=== PATIENT | male | born 1970 | race Hispanic/Latino ===

== ENCOUNTER 2017-08-23 21:01 | Emergency (ER) | payer OTHER ==
[~2017-08-23] VITALS: Ht 170.2 cm; Wt 99.8 kg
[2017-08-23] MEDS ORDERED: SODIUM CHLORIDE 0.9% 1000ML 1,000 ML ONE (21:15)
[2017-08-23] MEDS ORDERED: ASPIRIN 325 MG TAB PO ONE (21:15)
[2017-08-23] MEDS ORDERED: NITROGLYCERIN 0.4 MG SUBL SL ONE (21:15)
[2017-08-23] MEDS ORDERED: ONDANSETRON HCL INJ 2 MG/ML VIAL IV PRN (22:15)
[2017-08-23] MEDS ORDERED: MORPHINE SULFATE 2 MG/ML SYR IV PRN (22:15)
[2017-08-23] MEDS ORDERED: NITROGLYCERIN 0.4 MG SUBL SL PRN (22:15)
[2017-08-23] MEDS ORDERED: SODIUM CHLORIDE FLUSH 10 ML SYR INJ PRN (22:15)
[2017-08-23] MEDS ORDERED: ASPIRIN 81 MG CHEW TAB PO ONE (22:15)
[2017-08-24 08:04] VITALS: BP 124/78
[2017-08-24] MEDS ORDERED: ASPIRIN 81 MG ENTERIC COATED PO SCH (09:00)
== END 2017-08-24 08:00 | disposition home or self-care (01) ==
LOC: FSED 21:01
DX: R07.2 Precordial pain (principal); I25.110 Atherosclerotic heart disease of native coronary artery with unstable angina pectoris; K21.9 Gastro-esophageal reflux disease without esophagitis
CPT/HCPCS: 71046; 80053; 81003; 82553; 84484; 85025; 93005 ×2; 99284; J2270; J2405; J7030

== ENCOUNTER 2017-09-20 16:10 | Emergency (ER) | payer OTHER ==
[~2017-09-20] VITALS: Ht 170.2 cm; Wt 93.9 kg
--- OUTSIDE RECORDS SUMMARY | 2017-09-20 16:12 | XMS REPORT | Clinical Summary ---
Author Author [facility] Address Unknown Phone Unavailable Care Team Providers Care First Assist Name Role Phone PCP Unavailable Allergies Not on File Current Medications Not on file Active Problems Not on file Encounters Date Type Specialty Care Team Description 08/24/2017 Hospital Encounter after 09/19/2016 Social History Tobacco Use Types Packs/Day Years Used Date Never Assessed Sex Assigned at Date Recorded Not on file Last Filed Vital Signs Not on file Plan of Treatment Not on file Results Not on fileafter 09/19/2016
--- OUTSIDE RECORDS SUMMARY | 2017-09-20 16:12 | XMS REPORT | Continuity of Care Document ---
Author Author [facility] Organization [facility] Address [address] [place] [address] Phone Unavailable Care Team Providers Care Car Pick Up Driver Name Role Phone NONSTAFF PCP Unavailable Insurance Providers Guarantor Taurus Fitzgerald Address [address] [place] [address] Email [email or web address] Payer Cigna Ppo Policy Number [id number] Subscriber's Name Taurus Fitzgerald Relationship 18 Self / Same As Patient Group Number [id number] Group Name [employer] Effective Date 07 Advance Directives Directive Response Recorded Date/Time Does the patient have an advance directive? No 08/11/07 6:59pm If yes, is advance directive on file with [facility]? No 08/11/07 6:59pm If not on file with [facility] will patient provide a copy? No 09/11/16 3:53am Do you have a Directive to Physician? No 08/23/17 10:16pm Do you have a Medical Power of Software Project Lead? No 08/23/17 10:16pm Do you have an out of hospital Do Not Resuscitate Order? No 08/23/17 10:16pm Do you have any special needs we should be aware of? No 08/23/17 10:16pm Do you have a support person here with you today? No 08/23/17 10:16pm Did patient receive Notice of Privacy Practices? Yes 08/23/17 10:16pm Did patient receive patient rights and responsibilities? Yes 08/23/17 10:16pm Problems Medical Problem Onset Date Status Chest pain Unknown Unstable angina Unknown Medications No medication information available. Social History Smoking Status Start Date Stop Date Never Smoker Hospital Discharge Instructions No hospital discharge instruction information available. Plan of Care Discharge Date 08/24/17 8:00am Disposition HOME, SELF-CARE Condition at Discharge Improved Instructions/Education Provided Angina Prescriptions See Medication Section Additional Instructions/Education Discussed working diagnosis of angina and treatment plan. Recommend follow up with climate change risk assessor next week. Proceed to [facility] ER in [facility] if recurrent chest pain. All questions answered. Functional Status No functional status information available. Allergies, Adverse Reactions, Alerts No known allergies. Immunizations No immunization information available. Vital Signs Acute Vital Signs Vital Response Date/Time Pulse Pulse Rate (adult) 74 bpm (60 - 90) 08/24/2017 8:04am Respiratory Rate 16 bpm (12 - 24) 08/24/2017 8:04am Blood Pressure 124/78 mm Hg 08/24/2017 8:04am Height 5 ft 7 in 08/23/2017 9:02pm Weight 220 lb 08/23/2017 9:02pm Body Mass Index 34.5 kg/m^2 08/23/2017 9:02pm Results No relevant diagnostic test, laboratory data and/or discharge summary information available. Procedures No procedure information available. Encounters Encounter Location Arrival/Admit Date Discharge/Depart Date Attending Provider Departed Emergency Room [facility] 08/23/17 9:01pm 8:00am AMY HANEY MD
[2017-09-20] MEDS ORDERED: ASPIRIN 81 MG CHEW TAB PO ONE (16:45)
--- NOTE | 2017-09-20 17:08 | Diagnostic Imaging Report ---
PROCEDURE: Frontal and lateral views of the chest. COMPARISON: 09/11/2016 INDICATIONS: LEFT SIDED CHEST PAIN FINDINGS: Lines/tubes: None. Lungs: The lungs are well inflated and clear. There is no evidence of pneumonia or pulmonary edema. Pleura: There is no pleural effusion or pneumothorax. Heart and mediastinum: The heart and the mediastinum are normal. Bones: No acute bony abnormality. IMPRESSION: 1. No acute cardiopulmonary disease. Dictated by: Jose J Santiago M.D. on 09/20/2017 at 17:09 Electronically approved by: Jose J Santiago M.D. on 09/20/2017 at 17:09
[2017-09-20] MEDS ORDERED: ASPIRIN 81 MG CHEW TAB ONE (17:11)
[2017-09-20 17:48] LABS: BASOPHILS % 0.3 % (0.0-1.0); EOSINOPHILS # (AUTO) 0.1 (0.0-0.4); HEMATOCRIT 44.7 % (38.2-49.6); HEMOGLOBIN 15.2 g/dL (14.0-18.0); LYMPHOCYTES # (AUTO) 1.9 (1.0-3.2); LYMPHOCYTES % 33.3 % (18.0-39.1); MEAN CORPUSCULAR HEMOGLOBIN 29.4 pg (28-32); MEAN CORPUSCULAR VOLUME 86.5 fL (81-99); MONOCYTES # (AUTO) 0.5 (0.2-0.8); MONOCYTES % 8.8 % (4.4-11.3); NEUTROPHILS # (AUTO) 3.2 (2.1-6.9); NEUTROPHILS % 55.9 % (38.7-80.0); PLATELET COUNT 227 x10e3/uL (140-360); RED BLOOD COUNT 5.17 x10e6/uL (4.3-5.7); RED CELL DISTRIBUTION WIDTH 14.2 % (11.7-14.4)
[2017-09-20 18:02] LABS: INR 1.11; PROTHROMBIN TIME 13.5 seconds (11.9-14.5)
[2017-09-20 18:03] LABS: BILIRUBIN,URINE NEGATIVE (NEGATIVE); CLARITY,URINE CLEAR (CLEAR); COLOR,URINE YELLOW (YELLOW); KETONES,URINE NEGATIVE (NEGATIVE); LEUKOCYTE ESTERASE ,URINE NEGATIVE (NEGATIVE); NITRITE,URINE NEGATIVE (NEGATIVE); PARTIAL THROMBOPLASTIN TIME 30.3 seconds (23.8-35.5); PROTEIN,URINE DIPSTICK NEGATIVE (NEGATIVE); URINE UROBILINOGEN 1 mg/dL (0.2 - 1)
[2017-09-20 18:11] LABS: ALANINE AMINOTRANSFERASE 47 IU/L (0-55); ALBUMIN 3.8 g/dL (3.5-5.0); ALBUMIN/GLOBULIN RATIO 1.2 (0.8-2.0); ALKALINE PHOSPHATASE 89 IU/L (40-150); ANION GAP 13.8 mmol/L (8-16); BACTERIA,URINE RARE /HPF; BLOOD UREA NITROGEN 6 mg/dL (7-26); BUN/CREATININE RATIO 7 (6-25); CALCIUM 9.4 mg/dL (8.4-10.2); CARBON DIOXIDE 24 mmol/L (22-29); CHLORIDE 105 mmol/L (98-107); CREATINE KINASE 112 IU/L (30-200); CREATININE, SERUM 0.82 mg/dL (0.72-1.25); EST GLOMERULAR FILTRATION RATE > 60 ML/MIN (60-); GLUCOSE 92 mg/dL (74-118); LIPASE 14 U/L (8-78); MAGNESIUM 2.3 MG/DL (1.3-2.1); MUCUS,URINE RARE (RARE); POTASSIUM 3.8 mmol/L (3.5-5.1); SODIUM 139 mmol/L (136-145); WBC,URINE (MAN) 0-5 /HPF (0-5)
[2017-09-20 19:51] VITALS: BP 133/81
== END 2017-09-20 19:54 | disposition home or self-care (01) ==
LOC: ER 16:10
DX: R07.89 Other chest pain (principal)
CPT/HCPCS: 36415; 71046; 80053; 81001; 82550; 82553; 83690; 83735; 83880; 84484; 85025; 85379; 85610; 85730; 93005; 99284